=== PATIENT | female | born 1930 | race Caucasian/White ===

== ENCOUNTER 2016-12-07 21:57 | Inpatient (IN) | payer OTHER ==
[2016-12-07 22:29] LABS: % IMMATURE GRANULYOCYTES 0.5 % (0.0-1.1); ABSOLUTE IMMATURE GRANULOCYTES 0.05 10^3/uL (0.00-0.10); ADD DIFF? NO; ADD MORPH? NO; ADD SCAN? NO; ATYPICAL LYMPHOCYTE FLAG 0 (0-99); FRAGMENT RBC FLAG 0 (0-99); HEMATOCRIT 46.7 % (38.0-47.0); HEMOGLOBIN 16.1 g/dL (12.6-16.3); LEFT SHIFT FLG 70 (0-99); LIPEMIA HEMOLYSIS FLAG 90 (0-99); MEAN CELL HEMOGLOBIN 33.1 pg (27.9-34.1); MEAN CELL HEMOGLOBIN CONCENTR. 34.5 g/dL (32.4-36.7); MEAN CELL VOLUME 95.9 fL (81.5-99.8); MEAN PLATELET VOLUME 10.5 fL (8.7-11.7); PLATELET CLUMPS FLAG 30 (0-99); PLATELET COUNT 159 10^3/uL (150-400); RED BLOOD CELL COUNT 4.87 10^6/uL (4.18-5.33); RED CELL DISTRIBUTION WIDTH 13.8 % (11.5-15.2)
--- NOTE | 2016-12-07 22:45 | EDPHY ---
H & P Stated Complaint: HEADACHE SLURRED SPEECH . HX OF FOOT INFECTION Time Seen by Provider: 12/07/16 22:06 HPI/ROS: HPI The patient presents with headache which began at about 9:00 a.m. this morning it has been getting progressively worse over the course of the day, it is left- sided, sharp in nature and intermittent. It is not improved with Tylenol which she took at about 5:00 p.m. today. She has lack of appetite and did not eat much dinner. Her thought that this morning when they were doing their finances she seemed a bit confused though just slightly. She then asked him for help getting ready for bed tonight because she was feeling so weak. This is when he called 911. In the ambulance, the patient was given fentanyl 100 mcg , she is now feeling a bit woozy and her headache is somewhat improved. 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 She has a worsening blister of base of the toe which is associated with some redness of her left mckeon. She denies any falls or trauma. She has not had a headache like this before. REVIEW OF SYSTEMS Constitutional: No fever, no chills. Eyes: No discharge. ENT: No sore throat. Cardiovascular: No chest pain, no palpitations. Respiratory: No cough, no shortness of breath. Gastrointestinal: No abdominal pain, no vomiting. Genitourinary: No hematuria. Musculoskeletal: No back pain. Skin: No rashes. Neurological: See HPI PMHx: CAD status post bypass, polio, osteoarthritis Soc Hx: Lives at home with her PHYSICAL General Appearance: Alert, no distress Eyes: Pupils equal and round no pallor or injection ENT, Mouth: Mucous membranes moist Respiratory: There are no retractions, lungs are clear to auscultation Cardiovascular: Regular rate and rhythm Gastrointestinal: Abdomen is soft and non-tender, no masses, bowel sounds normal Neurological: A&O x3, cranial nerves 2-12 intact, normal finger to nose testing , right upper extremity is weak 4+/5 Skin: Warm and dry, no rashes Musculoskeletal: Neck is supple non tender Extremities: Left 3rd toe with ulceration which is whitish in color, left anterior in her leg with slight erythema and warmth Psychiatric: Patient is oriented X 3, there is no agitation Source: Patient, EMS Exam Limitations: No limitations - Personal History Current Tetanus/Diphtheria Vaccine: Yes Current Tetanus Diphtheria and Acellular Pertussis (TDAP): Yes - Medical/Surgical History Hx Asthma: No Hx Chronic Respiratory Disease: No Hx Diabetes: No Hx Cardiac Disease: Yes Hx Renal Disease: No Hx Cirrhosis: No Hx Alcoholism: No Hx HIV/AIDS: No Hx Splenectomy or Spleen Trauma: No Other PMH: med hx -quad bypass-2000,cholesterol, osteoarthritis,gout,polio, glaucoma,chronic back pain. surg-bypass,cataracts,ortho - Social History Smoking Status: Never smoked Constitutional: Initial Vital Signs Temperature (C) 37.4 C 12/07/16 22:00 Heart Rate 73 12/07/16 22:00 Respiratory Rate 18 12/07/16 22:00 Blood Pressure 137/78 H 12/07/16 22:00 O2 Sat (%) 91 L 12/07/16 22:00 O2 Delivery Mode Room Air O2 (L/minute) 2 Allergies/Adverse Reactions: No Known Allergies Allergy (Verified 12/07/16 22:09) Home Medications: Medication Instructions Recorded ALLOPURINOL [Allopurinol 300 mg] 300 mg PO DAILY 01/25/11 Aspirin [Aspirin 81mg] 81 mg PO DAILY 01/25/11 CELECOXIB [Celebrex] 200 mg PO DAILY 01/25/11 SIMVASTATIN [Zocor] 40 mg PO DAILY 01/25/11 Calcium Citrate W/Vit D [Citracal 06/29/14 + D] Combigan (*) 12/07/16 Latanoprost 12/07/16 Medical Decision Making - Diagnostics EKG Interpretation: EKG: Complete interpretation has been separately recorded in the [facility] archive. Summary impression: Left bundle branch block Imaging Results: Imaging Impressions Head CT 12/07/16 22:20 Impression: Senescent features, with no acute abnormality identified on this unenhanced CT evaluation, or substantial change from 06/29/2014. If there is further clinical concern regarding the patient's symptoms, MR imaging is suggested, if not otherwise contraindicated. Findings were discussed with Emperatriz Mcadams MD at 23:15, on 12/07/2016. Chest x-ray two views demonstrates mild cardiomegaly, no infiltrate, interpreted by me, radiology interpretation is pending. Imaging: Discussed imaging studies w/ art studio teacher Radiologist Differential Diagnosis: This is an 86-year-old female with known CAD, osteoarthritis, history of polio who presents brought in by ambulance for headache which began this morning which is getting progressively worse over the course of the day. She also had an episode of confusion this morning and global weakness while trying to get into bed tonight. On exam, she has normal vital signs the was tired appearing. Her neurologic exam is nonfocal. She does have some weakness of her extremities which is likely related to her underlying polio and is unchanged today. She does have some redness of her left leg which could represent underlying cellulitis Differential diagnosis includes CVA, intracranial hemorrhage, subdural hematoma , systemic illness such as infection, electrolyte disturbance. In the emergency room the patient was given a 1 L fluid bolus for volume depletion. Basic labs were checked which demonstrated an elevated BUN and a UA consistent with urinary tract infection. Chest x-ray was unremarkable. CT scan of head was unremarkable. I feel the patient likely has a UTI as the cause of her symptomatology. She was given a dose of ceftriaxone here. Given her weakness, I do not feel she is suitable for discharge. I discussed the case with the hospitalist senior consumer insights consultant Dr. Hendrix and we plan to admit the patient for observation. The patient and her family are in agreement with this plan and have been updated. I have answered their questions. - Data Points Laboratory Results: Laboratory Results 12/07/16 22:00 12/07/16 22:00 12/07/16 12/07/16 22:00 22:00 WBC 9.64 10^3/uL H 10^3/uL (3.80-9.50) RBC 4.87 10^6/uL 10^6/uL (4.18-5.33) Hgb 16.1 g/dL g/dL (12.6-16.3) Hct 46.7 % % (38.0-47.0) MCV 95.9 fL fL (81.5-99.8) MCH 33.1 pg pg (27.9-34.1) MCHC 34.5 g/dL g/dL (32.4-36.7) RDW 13.8 % % (11.5-15.2) Plt Count 159 10^3/uL 10^3/uL (150-400) MPV 10.5 fL fL (8.7-11.7) Neut % (Auto) 85.0 % H % (39.3-74.2) Lymph % (Auto) 8.7 % L % (15.0-45.0) [place] % (Auto) 5.5 % % (4.5-13.0) Eos % (Auto) 0.1 % L % (0.6-7.6) Baso % (Auto) 0.2 % L % (0.3-1.7) Nucleat RBC Rel Count 0.0 % % (0.0-0.2) Absolute Neuts (auto) 8.19 10^3/uL H 10^3/uL (1.70-6.50) Absolute Lymphs (auto) 0.84 10^3/uL L 10^3/uL (1.00-3.00) Absolute Monos (auto) 0.53 10^3/uL 10^3/uL (0.30-0.80) Absolute Eos (auto) 0.01 10^3/uL L 10^3/uL (0.03-0.40) Absolute Basos (auto) 0.02 10^3/uL 10^3/uL (0.02-0.10) Absolute Nucleated RBC 0.00 10^3/uL 10^3/uL (0-0.01) Immature Gran % 0.5 % % (0.0-1.1) Immature Gran # 0.05 10^3/uL 10^3/uL (0.00-0.10) Sodium 136 mEq/L mEq/L (134-144) Potassium 4.3 mEq/L mEq/L (3.5-5.2) Chloride 100 mEq/L mEq/L (97-110) Carbon Dioxide 24 mEq/l mEq/l (22-31) Anion Gap 12 mEq/L mEq/L (8-16) BUN 27 mg/dL H mg/dL (7-23) Creatinine 0.7 mg/dL mg/dL (0.6-1.0) Estimated GFR > 60 Glucose 112 mg/dL H mg/dL (70-100) Calcium 9.7 mg/dL mg/dL (8.5-10.4) Total Bilirubin 1.0 mg/dL mg/dL (0.1-1.4) AST 30 IU/L IU/L (14-46) ALT 19 IU/L IU/L (9-52) Alkaline Phosphatase 89 IU/L IU/L (38-126) Troponin I 0.026 ng/mL ng/mL (0-0.034) Total Protein 7.4 g/dL g/dL (6.3-8.2) Albumin 4.5 g/dL g/dL (3.5-5.0) Medications Given: Discontinued Medications Acetaminophen (Tylenol) 1,000 mg PO EDNOW ONE Stop: 12/08/16 00:14 Last Admin: 12/08/16 00:28 Dose: 1,000 mg Ceftriaxone Sodium/Dextrose (Rocephin 1 Gm (Premix)) 50 mls @ 100 mls/hr IV EDNOW ONE PRN Reason: Protocol Stop: 12/08/16 00:16 Last Admin: 12/07/16 23:50 Dose: 50 mls Sodium Chloride (Ns) 1,000 mls @ 0 mls/hr IV ONCE ONE PRN Reason: Wide Open Stop: 12/07/16 23:48 Last Admin: 12/07/16 23:50 Dose: 1,000 mls Departure - Departure Disposition: [facility] Inpatient Acute Clinical Impression: Weakness UTI (urinary tract infection) Qualifiers: Urinary tract infection type: site unspecified Hematuria presence: without hematuria Qualified Code(s): N39.0 - Urinary tract infection, site not specified Headache Qualifiers: Headache type: unspecified Headache chronicity pattern: acute headache Intractability: not intractable Qualified Code(s): R51 - Headache Condition: Fair
[2016-12-07 23:13] LABS: ALANINE AMINOTRANSFERASE 19 IU/L (9-52); ALBUMIN 4.5 g/dL (3.5-5.0); ALKALINE PHOSPHATASE 89 IU/L (38-126); ANION GAP 12 mEq/L (8-16); ASPARTATE AMINOTRANSFERASE 30 IU/L (14-46); CALCIUM 9.7 mg/dL (8.5-10.4); CARBON DIOXIDE 24 mEq/l (22-31); CHLORIDE 100 mEq/L (97-110); CREATININE 0.7 mg/dL (0.6-1.0); GLOMERULAR FILTRATION RATE > 60; GLUCOSE 112 mg/dL (70-100); POTASSIUM 4.3 mEq/L (3.5-5.2); SODIUM 136 mEq/L (134-144); TOTAL PROTEIN 7.4 g/dL (6.3-8.2)
[2016-12-07 23:24] LABS: TROPONIN I 0.026 ng/mL (0-0.034)
--- NOTE | 2016-12-07 23:31 | CPEKG ---
Heart Rate: 80 RR Interval: 750 P-R Interval: 200 QRSD Interval: 134 QT Interval: 416 QTC Interval: 480 P [place]: 34 QRS [place]: 50 T Wave [place]: -90 EKG Severity - ABNORMAL ECG - EKG Impression: SINUS RHYTHM EKG Impression: IVCD, CONSIDER ATYPICAL LBBB Electronically Signed By: Emperatriz Mcadams 08-Dec-2016 07:50:28
[2016-12-07] MEDS ORDERED: NS 1,000 ML IV ONE (23:47)
[2016-12-08] MEDS ORDERED: ACETAMINOPHEN 500 MG TAB PO ONE (00:13)
[2016-12-08] MEDS ORDERED: ACETAMINOPHEN 500 MG TAB ONE (00:14)
[2016-12-08 00:38] LABS: COLOR YELLOW; LEUKOCYTE ESTERASE,URINE 1+ (NEGATIVE); NITRITE,URINE POSITIVE (NEGATIVE)
[2016-12-08] MEDS ORDERED: oxyCODONE IR 5 MG TAB PO PRN (00:40)
[2016-12-08] MEDS ORDERED: ONDANSETRON 4 MG/2 ML VIAL IVP PRN (00:40)
[2016-12-08] MEDS ORDERED: ONDANSETRON DISINTEGRATING 4 MG TAB PO PRN (00:40)
[2016-12-08 00:42] LABS: BACTERIA 3+ /hpf (NONE SEEN); MUCUS TRACE /lpf (NONE-1+); RBC,URINE 25-50 /hpf (0-3)
[2016-12-08] MEDS: NS 1,000 ML IV SCH ×2 (01:34→15:53)
--- NOTE | 2016-12-08 01:54 | PDGENHP ---
History and Physical - Chief Complaint headache - History of Present Illness Patient is an 86 year old female with CAD, HLD, gout, OA, childhood polio who presents to the ED with complaint of headache and generalized weakness. Patient began complaining of a L-sided posterior headache this morning at around 9 am, not associated with nausea, photophobia, phonophobia, neck stiffness. She doesn' t usually get headaches, so she felt this was unusual. As the day progressed, the headache progressed, she felt a generalized fatigue, myalgias and lack of appetite. By the evening, she also had some subjective fever and chills, for which her gave her tylenol. She also began to appear confused, so her called his daughters, who recommended they come to the ED for further evaluation. No recent travel, obvious sick contacts, denies any new cough, chest pain, abdominal pain, nausea, vomiting, diarrhea. On arrival to the ED, patient was initially afebrile, then spiked fever to 38.3C , although hemodynamically stable, normal heart rate. Labs revealed mild leukocytosis, normal BMP. CT head was then obtained, did not show any acute abnormalities. EKG showed LBBB (no old to compare). UA was then obtained and was grossly positive. Patient was then cultured, started on antibiotics and admitted to the hospitalist service for further management. History Information - Allergies/Home Medication List Allergies/Adverse Reactions: No Known Allergies Allergy (Verified 12/07/16 22:09) Home Medications: ALLOPURINOL [Allopurinol 300 mg] 300 mg PO DAILY 01/25/11 [Last Taken Unknown] Aspirin [Aspirin 81mg] 81 mg PO DAILY 01/25/11 [Last Taken Unknown] CELECOXIB [Celebrex] 200 mg PO DAILY 01/25/11 [Last Taken Unknown] SIMVASTATIN [Zocor] 40 mg PO DAILY 01/25/11 [Last Taken Unknown] Calcium Citrate W/Vit D [Citracal + D] 06/29/14 [Last Taken Unknown] Combigan (*) 12/07/16 [Last Taken Unknown] Latanoprost 12/07/16 [Last Taken Unknown] I have personally reviewed and updated: family history, medical history, social history, surgical history - Past Medical History Additional medical history: CAD s/p CABG. osteoarthritis. gout. hyperlipidemia. glaucoma. history of childhood polio - Surgical History Additional surgical history: CABG. multiple orthopedic surgeries of her lower extremities in childhood. cataract repair - Family History Positive for: non-pertinent - Social History Smoking Status: Former smoker (quit > 40 years ago) Alcohol Use: None Drug Use: None Additional social history: Patient lives with , is independent in most all ADLs. Two daughters live nearby Review of Systems ROS: 10pt was reviewed & negative except for what was stated in HPI & below Physical Exam Temp Pulse Resp BP Pulse Ox 37.3 C 76 18 124/57 H 95 12/08/16 01:26 12/08/16 01:26 12/08/16 01:26 12/08/16 01:26 12/08/16 01:26 Constitutional: no apparent distress, appears nourished, not in pain Eyes: PERRL, anicteric sclera, EOMI Ears, Nose, Mouth, Throat: moist mucous membranes, hearing normal, ears appear normal, no oral mucosal ulcers Cardiovascular: regular rate and rhythym, no murmur, rub, or gallop, pulses symmetric bilaterally, No JVD, No edema Peripheral Pulses: 2+: dorsalis-pedis (R), dorsalis-pedis (L) Respiratory: no respiratory distress, no rales or rhonchi, clear to auscultation Gastrointestinal: normoactive bowel sounds, soft, non-tender abdomen, no palpable masses, No guarding, No rebound, No distension Genitourinary: no bladder fullness, no bladder tenderness Skin: warm, normal color, erythema (faint erythema and warmth of LLE extending from foot anteriorly up to mid-mckeon; no posterior extension), No mottled Musculoskeletal: full muscle strength, no muscle tenderness, normal joint ROM, no joint effusions, other (polio deformities of bilateral feet) Neurologic: AAOx3, sensation intact bilaterally, CN II-XII Intact, other ( lethargic, but answers questions/follows commands appropriately), No weakness, No numbness Psychiatric: interacting appropriately, not anxious, not encephalopathic, thought process linear Lab Data & Imaging Review 12/07/16 22:00 12/07/16 22:00 WBC 9.64 10^3/uL (3.80-9.50) H 12/07/16 22:00 RBC 4.87 10^6/uL (4.18-5.33) 12/07/16 22:00 Hgb 16.1 g/dL (12.6-16.3) 12/07/16 22:00 Hct 46.7 % (38.0-47.0) 12/07/16 22:00 MCV 95.9 fL (81.5-99.8) 12/07/16 22:00 MCH 33.1 pg (27.9-34.1) 12/07/16 22:00 MCHC 34.5 g/dL (32.4-36.7) 12/07/16 22:00 RDW 13.8 % (11.5-15.2) 12/07/16 22:00 Plt Count 159 10^3/uL (150-400) 12/07/16 22:00 MPV 10.5 fL (8.7-11.7) 12/07/16 22:00 Neut % (Auto) 85.0 % (39.3-74.2) H 12/07/16 22:00 Lymph % (Auto) 8.7 % (15.0-45.0) L 12/07/16 22:00 Person % (Auto) 5.5 % (4.5-13.0) 12/07/16 22:00 Eos % (Auto) 0.1 % (0.6-7.6) L 12/07/16 22:00 Baso % (Auto) 0.2 % (0.3-1.7) L 12/07/16 22:00 Nucleat RBC Rel Count 0.0 % (0.0-0.2) 12/07/16 22:00 Absolute Neuts (auto) 8.19 10^3/uL (1.70-6.50) H 12/07/16 22:00 Absolute Lymphs (auto) 0.84 10^3/uL (1.00-3.00) L 12/07/16 22:00 Absolute Monos (auto) 0.53 10^3/uL (0.30-0.80) 12/07/16 22:00 Absolute Eos (auto) 0.01 10^3/uL (0.03-0.40) L 12/07/16 22:00 Absolute Basos (auto) 0.02 10^3/uL (0.02-0.10) 12/07/16 22:00 Absolute Nucleated RBC 0.00 10^3/uL (0-0.01) 12/07/16 22:00 Immature Gran % 0.5 % (0.0-1.1) 12/07/16 22:00 Immature Gran # 0.05 10^3/uL (0.00-0.10) 12/07/16 22:00 Sodium 136 mEq/L (134-144) 12/07/16 22:00 Potassium 4.3 mEq/L (3.5-5.2) 12/07/16 22:00 Chloride 100 mEq/L (97-110) 12/07/16 22:00 Carbon Dioxide 24 mEq/l (22-31) 12/07/16 22:00 Anion Gap 12 mEq/L (8-16) 12/07/16 22:00 BUN 27 mg/dL (7-23) H 12/07/16 22:00 Creatinine 0.7 mg/dL (0.6-1.0) 12/07/16 22:00 Estimated GFR > 60 12/07/16 22:00 Glucose 112 mg/dL (70-100) H 12/07/16 22:00 Calcium 9.7 mg/dL (8.5-10.4) 12/07/16 22:00 Total Bilirubin 1.0 mg/dL (0.1-1.4) 12/07/16 22:00 AST 30 IU/L (14-46) 12/07/16 22:00 ALT 19 IU/L (9-52) 12/07/16 22:00 Alkaline Phosphatase 89 IU/L (38-126) 12/07/16 22:00 Troponin I 0.026 ng/mL (0-0.034) 12/07/16 22:00 Total Protein 7.4 g/dL (6.3-8.2) 12/07/16 22:00 Albumin 4.5 g/dL (3.5-5.0) 12/07/16 22:00 Urine Color YELLOW 12/08/16 00:28 Urine Appearance HAZY 12/08/16 00:28 Urine pH 6.0 (5.0-7.5) 12/08/16 00:28 Ur Specific [place] 1.018 (1.002-1.030) 12/08/16 00:28 Urine Protein NEGATIVE (NEGATIVE) 12/08/16 00:28 Urine Ketones TRACE (NEGATIVE) H 12/08/16 00:28 Urine Blood 2+ (NEGATIVE) H 12/08/16 00:28 Urine Nitrate POSITIVE (NEGATIVE) H 12/08/16 00:28 Urine Bilirubin NEGATIVE (NEGATIVE) 12/08/16 00:28 Urine Urobilinogen NEGATIVE EU (0.2-1.0) 12/08/16 00:28 Ur Leukocyte Esterase 1+ (NEGATIVE) H 12/08/16 00:28 Urine RBC 25-50 /hpf (0-3) H 12/08/16 00:28 Urine WBC 3-5 /hpf (0-3) H 12/08/16 00:28 Ur Epithelial Cells TRACE /lpf (NONE-1+) 12/08/16 00: Urine Bacteria 3+ /hpf (NONE SEEN) H 12/08/16 00:28 Urine Mucus TRACE /lpf (NONE-1+) 12/08/16 00:28 Urine Glucose NEGATIVE (NEGATIVE) 12/08/16 00:28 Influenza Typ A,B (DFA) NEGATIVE FOR FLU (NEGATIVE) 12/08/16 00:12 Visualized and Interpreted Chest x-ray results: Yes Chest X-Ray results: no infiltrate, normal Visualized and Interpreted imaging results: Yes Interpretation: CT Head: elderly brain, no acute intracranial abnormalities Visualized and Interpreted EKG results: Yes EKG Interpretation: Positive for: left bundle branch block (no old to compare) Assessment & Plan Assessment: Patient is an 86 year old female with CAD, osteoarthritis, hyperlipidemia, history of childhood polio who presents to the ED with generalized fatigue, myalgias, fever and headache. ED evaluation reveals acute UTI, without evidence of sepsis. Plan: # UTI Patient's presenting symptoms are likely related to acute/early infection. ED work up reveals fever, slight leukocytosis and positive UA (UA obtained after ceftriaxone was given). CXR and flu swab are negative. Blood and urine cultures were sent and patient was initiated on antibiotics. Ceftriaxone will also cover mild LLE cellulitis also present on admission. - f/u cultures - ceftriaxone 1 g daily - IVF hydration overnight with normal saline # headache Suspect due to above, headache improved with acetaminophen. CT head without any acute pathology, patient has no focal deficits, lethargic but mentating well. Will cont to monitor and treat pain prn. # LBBB Patient denies any associated chest pain with presentation, however, has known CAD (with cabg about 15 years ago) and EKG shows LBBB, with no old in meditech to compare. Will monitor troponins, resume home meds and repeat AM EKG. Will also try to obtain outpatient/previous EKG. # Gout, osteoarthritis Complaining of L 3rd toe pain, does not appear to be an acute gout flare, more likely related to her chronic contracture/OA. Will continue her home pain regimen and allopurinol. # HLD Cont home statin. # dispo: admit to observation for treatment of early UTI # gen: cardiac diet DVT ppx: if remains for > 2 MN, initiate lovenox Full code
[2016-12-08 05:30] LABS: ANION GAP 5 mEq/L (8-16); CALCIUM 8.2 mg/dL (8.5-10.4); CARBON DIOXIDE 23 mEq/l (22-31); CHLORIDE 108 mEq/L (97-110); CREATININE 0.6 mg/dL (0.6-1.0); GLOMERULAR FILTRATION RATE > 60; GLUCOSE 109 mg/dL (70-100); MAGNESIUM 1.7 mg/dL (1.6-2.3); POTASSIUM 3.6 mEq/L (3.5-5.2); SODIUM 136 mEq/L (134-144)
[2016-12-08 05:33] LABS: % IMMATURE GRANULYOCYTES 0.4 % (0.0-1.1); ABSOLUTE IMMATURE GRANULOCYTES 0.03 10^3/uL (0.00-0.10); ADD DIFF? NO; ADD MORPH? NO; ADD SCAN? NO; ATYPICAL LYMPHOCYTE FLAG 0 (0-99); FRAGMENT RBC FLAG 0 (0-99); HEMATOCRIT 36.7 % (38.0-47.0); HEMOGLOBIN 12.7 g/dL (12.6-16.3); LEFT SHIFT FLG 70 (0-99); LIPEMIA HEMOLYSIS FLAG 90 (0-99); MEAN CELL HEMOGLOBIN 33.3 pg (27.9-34.1); MEAN CELL HEMOGLOBIN CONCENTR. 34.6 g/dL (32.4-36.7); MEAN CELL VOLUME 96.3 fL (81.5-99.8); MEAN PLATELET VOLUME 10.5 fL (8.7-11.7); PLATELET CLUMPS FLAG 0 (0-99); PLATELET COUNT 117 10^3/uL (150-400); RED BLOOD CELL COUNT 3.81 10^6/uL (4.18-5.33)
[2016-12-08 05:41] LABS: TROPONIN I 0.035 ng/mL (0-0.034)
[2016-12-08] MEDS: ENOXAPARIN 40 MG/0.4 ML SYR SC SCH (08:31)
--- NOTE | 2016-12-08 09:50 | CPEKG ---
Heart Rate: 73 RR Interval: 822 P-R Interval: 184 QRSD Interval: 86 QT Interval: 384 QTC Interval: 424 P [place]: 12 QRS [place]: -17 T Wave [place]: 79 EKG Severity - ABNORMAL ECG - EKG Impression: SINUS RHYTHM EKG Impression: PROBABLE LVH WITH SECONDARY REPOL ABNRM Electronically Signed By: Emperatriz Mcadams 09-Dec-2016 07:03:29
[2016-12-08] MEDS: ACETAMINOPHEN 325 MG TAB PO PRN (09:52)
--- NOTE | 2016-12-08 10:24 | HOSPPROG ---
Hospitalist Progress Note Assessment/Plan: 86 yo F w cad here w fever, likely LLL pneumonia fever: reasonably attributed to LL pneumonia blood cx drawn LLL pneumonia: add doxycycline not hypoxic ? UTI: no sx will be covered by ceftriaxone proph: add LMWH cad: weakly + troponin repeat on asa/statin she notes increasing fatigue lately- probably reasona ble to get outpt stress dispo: inpt Subjective: case d/w dr ulloa. cxr w possible LLL infiltrate (interp by me) Objective: Vital Signs Temp Pulse Resp BP Pulse Ox 36.9 C 71 14 128/62 H 94 12/08/16 07:52 12/08/16 07:52 12/08/16 07:52 12/08/16 07:52 12/08/16 07:52 Laboratory Results 12/08/16 05:01 12/08/16 05:01 12/07/16 12/08/16 12/09/16 05:59 05:59 05:59 Intake Total 1000 386 Output Total 200 Balance 800 386 - Physical Exam Constitutional: no apparent distress, appears nourished Eyes: PERRL, anicteric sclera Ears, Nose, Mouth, Throat: moist mucous membranes, hearing normal Cardiovascular: regular rate and rhythym, no murmur, rub, or gallop Respiratory: no respiratory distress, other (crackles LLL) Gastrointestinal: normoactive bowel sounds, soft, non-tender abdomen, no palpable masses Genitourinary: No kim in urethra Skin: warm, normal color Musculoskeletal: full muscle strength, no muscle tenderness Neurologic: AAOx3, sensation intact bilaterally Psychiatric: interacting appropriately ICD10 Worksheet Patient Problems: Problems Problem Status Onset Headache Acute UTI (urinary tract infection) Acute Weakness Acute
[2016-12-08] MEDS: DOXYCYCLINE INJ 100 MG in NS 250 ML IV SCH ×2 (12:14→20:41)
[2016-12-08] MEDS ORDERED: BRIMONIDINE/TIMOLOL 5 ML OPHT.BTL EACHEYE SCH (20:00)
[2016-12-08] MEDS: ALLOPURINOL 300 MG TAB PO SCH (20:41)
[2016-12-08] MEDS: ATORVASTATIN CALCIUM 20 MG TAB PO SCH (20:41)
[2016-12-08] MEDS: ASPIRIN 81 MG CHEWABLE TAB PO SCH (20:41)
[2016-12-08] MEDS: BRIMONIDINE/TIMOLOL 5 ML OPHT.BTL EACHEYE SCH (20:42)
[2016-12-08] MEDS: LATANOPROST 0.005% 2.5 ML OPHT DROPS EACHEYE SCH (20:42)
[2016-12-08] MEDS ORDERED: NON-FORMULARY NEW DRUG (Simvastatin [Zocor] 40 MG) PO SCH (21:00)
[2016-12-08] MEDS ORDERED: LATANOPROST 0.005% 2.5 ML OPHT DROPS EACHEYE SCH (22:00)
[2016-12-09] MEDS: BRIMONIDINE/TIMOLOL 5 ML OPHT.BTL EACHEYE SCH ×2 (05:03→20:08)
[2016-12-09] MEDS: ENOXAPARIN 40 MG/0.4 ML SYR SC SCH (08:38)
[2016-12-09] MEDS ORDERED: Herbals/Supplements -Info Only PO SCH (09:00)
[2016-12-09] MEDS: DOXYCYCLINE INJ 100 MG in NS 250 ML IV SCH ×2 (09:33→22:22)
--- NOTE | 2016-12-09 09:41 | HOSPPROG ---
Hospitalist Progress Note Assessment/Plan: 86 yo F w cad here w fever, likely LLL pneumonia fever: reasonably attributed to LL pneumonia blood cx drawn afebril X 24 hours LLL pneumonia: add doxycycline not hypoxic ? UTI: no sx will be covered by ceftriaxone proph: add LMWH cad: weakly + troponin repeat on asa/statin she notes increasing fatigue lately- probably reasona ble to get outpt stress ok to dc tele dispo: inpt Subjective: tele: no events (interp by me). feels well Objective: Vital Signs Temp Pulse Resp BP Pulse Ox 36.8 C 61 18 142/73 H 94 12/09/16 07:19 12/09/16 07:19 12/09/16 07:19 12/09/16 07:19 12/09/16 07:19 Laboratory Results 12/08/16 05:01 12/08/16 05:01 12/08/16 12/09/16 12/10/16 05:59 05:59 05:59 Intake Total 1000 1826 2114 Output Total 200 700 200 Balance 800 1126 1914 - Physical Exam Constitutional: no apparent distress, appears nourished Eyes: PERRL, anicteric sclera Ears, Nose, Mouth, Throat: moist mucous membranes, hearing normal Cardiovascular: regular rate and rhythym, no murmur, rub, or gallop, No tachycardia Respiratory: no respiratory distress, other (crackles L base) Gastrointestinal: normoactive bowel sounds, soft, non-tender abdomen Genitourinary: No kim in urethra Skin: warm, normal color Musculoskeletal: full muscle strength, no muscle tenderness Neurologic: AAOx3, sensation intact bilaterally Psychiatric: interacting appropriately, not anxious Lymph, Heme, Immunologic: no cervical LAD ICD10 Worksheet Patient Problems: Problems Problem Status Onset Headache Acute UTI (urinary tract infection) Acute Weakness Acute
[2016-12-09] MEDS: ATORVASTATIN CALCIUM 20 MG TAB PO SCH (20:08)
[2016-12-09] MEDS: LATANOPROST 0.005% 2.5 ML OPHT DROPS EACHEYE SCH (20:08)
[2016-12-09] MEDS: ALLOPURINOL 300 MG TAB PO SCH (20:08)
[2016-12-09] MEDS: ASPIRIN 81 MG CHEWABLE TAB PO SCH (20:08)
[2016-12-10] MEDS: BRIMONIDINE/TIMOLOL 5 ML OPHT.BTL EACHEYE SCH ×2 (04:22→20:40)
[2016-12-10] MEDS: ENOXAPARIN 40 MG/0.4 ML SYR SC SCH (09:47)
--- NOTE | 2016-12-10 10:26 | HOSPPROG ---
Hospitalist Progress Note Assessment/Plan: 86 yo F w cad here w fever, likely LLL pneumonia fever: reasonably attributed to LL pneumonia blood cx drawn afebril X 24 hours LLL pneumonia: add doxycycline not hypoxic repeat cxr today given worsening exam RLE erythema: unnleikely cellulitis repeat eval later today rn to [place] ? UTI: no sx will be covered by ceftriaxone proph: add LMWH cad: weakly + troponin repeat on asa/statin she notes increasing fatigue lately- probably reasona ble to get outpt stress ok to dc tele dispo: inpt Subjective: feels " worse" today. repeat cxr pending Objective: Vital Signs Temp Pulse Resp BP Pulse Ox 36.8 C 74 16 166/89 H 95 12/10/16 07:45 12/10/16 07:45 12/10/16 07:45 12/10/16 08:18 12/10/16 07:45 Laboratory Results 12/08/16 05:01 12/08/16 05:01 12/09/16 12/10/16 12/11/16 05:59 05:59 05:59 Intake Total 1826 4315 Output Total 700 3400 350 Balance 1126 915 -350 - Physical Exam Constitutional: no apparent distress, appears nourished Eyes: PERRL, anicteric sclera Ears, Nose, Mouth, Throat: moist mucous membranes, hearing normal Cardiovascular: regular rate and rhythym, no murmur, rub, or gallop Respiratory: other (increased crackles at L base, good air movement, no wheeze) Gastrointestinal: normoactive bowel sounds, soft, non-tender abdomen Genitourinary: no bladder fullness, No kim in urethra Skin: warm, normal color Musculoskeletal: full muscle strength, other (mild erythema on L medial calf. no lymphangitic streaking) Neurologic: AAOx3 Psychiatric: interacting appropriately, not anxious ICD10 Worksheet Patient Problems: Problems Problem Status Onset Chronic Disease Mgmt/Transitional Care Acute Headache Acute UTI (urinary tract infection) Acute Weakness Acute
[2016-12-10] MEDS: DOXYCYCLINE INJ 100 MG in NS 250 ML IV SCH ×2 (10:44→20:41)
[2016-12-10] MEDS: ACETAMINOPHEN 325 MG TAB PO PRN (11:26)
[2016-12-10] MEDS: ALLOPURINOL 300 MG TAB PO SCH (20:39)
[2016-12-10] MEDS: ATORVASTATIN CALCIUM 20 MG TAB PO SCH (20:40)
[2016-12-10] MEDS: ASPIRIN 81 MG CHEWABLE TAB PO SCH (20:40)
[2016-12-10] MEDS: LATANOPROST 0.005% 2.5 ML OPHT DROPS EACHEYE SCH (20:41)
[2016-12-11] MEDS: BRIMONIDINE/TIMOLOL 5 ML OPHT.BTL EACHEYE SCH (04:23)
[2016-12-11 07:49] VITALS: BP 153/72; RESP 18; TEMP 97.8; O2SAT 94
[2016-12-11] MEDS: ENOXAPARIN 40 MG/0.4 ML SYR SC SCH (08:52)
[2016-12-11] MEDS: DOXYCYCLINE INJ 100 MG in NS 250 ML IV SCH (08:52)
--- NOTE | 2016-12-11 10:04 | PDIAF ---
- Diagnosis Diagnosis: community acquired pneumonia Code Status: Full Code - Medication Management Discharge Medications: Medications to Continue on Transfer Allopurinol [Allopurinol 300 MG (RX)] 300 mg PO HS 12/08/16 [Last Taken 12/06/16 ] Aspirin [Aspirin 81mg (*)] 81 mg PO HS 12/08/16 [Last Taken 12/06/16] Brimonidine/Timolol [Combigan (*)] 1 drops EACHEYE BID@,12/08/16 [Last Taken 12/07/16] Herbals/Supplements -Info Only 1 ea PO DAILY 12/08/16 [Last Taken Unknown] Latanoprost 0.005% [Xalatan 0.005% (*)] 1 drops EACHEYE DAILY@2200 12/08/16 [ Last Taken 12/06/16] Simvastatin [Zocor] 40 mg PO HS 12/08/16 [Last Taken 12/06/16] celeCOXIB [Celebrex (*)] 200 mg PO DAILY 12/08/16 [Last Taken 12/07/16] Amoxicillin 500 mg PO TID 3 Days 12/11/16 [Last Taken Unknown] Doxycycline Hyclate 100 mg PO BID #6 tablet 12/11/16 [Last Taken Unknown] Discharge Medications: Refer to the Discharge Home Medication list for PRN reason. - Orders Services needed: Home Care, Registered Nurse, Physical Therapy, Occupational Therapy Home Care Face to Face: I certify that this patient was under my care and that I had the required [id number] encounter meeting the encounter requirements on the discharge day. My findings support the fact that the patient is homebound as defined in CMS Chapter 7 Medicare Benefits Manual 30.1.1, The condition of the patient is such that there exists a normal inability to leave home and consequently, leaving home would require a considerable and taxing effort. Diet Recommendation: no restrictions on diet - Follow Up Care Current Providers and Referrals: Patient,NotPresent [Unknown] - As per Instructions
--- NOTE | 2016-12-11 10:05 | HOSPPROG ---
Hospitalist Progress Note Assessment/Plan: 86 yo F w cad here w fever, likely LLL pneumonia fever: reasonably attributed to LL pneumonia blood cx drawn afebril X 24 hours LLL pneumonia: add doxycycline not hypoxic repeat cxr today given worsening exam RLE erythema: unnleikely cellulitis repeat eval later today rn to [facility] ? UTI: no sx will be covered by ceftriaxone proph: add LMWH cad: weakly + troponin repeat on asa/statin she notes increasing fatigue lately- probably reasona ble to get outpt stress ok to dc tele dispo: home today > 30 minutes Subjective: ready for dc Objective: Vital Signs Temp Pulse Resp BP Pulse Ox 36.6 C 56 L 18 153/72 H 94 12/11/16 07:49 12/11/16 07:49 12/11/16 07:49 12/11/16 07:49 12/11/16 07:49 Microbiology 12/08/16 01:34 Urine Culture - Final Urine,Catheterized Strep Agalactiae Group B Two [place] Types Laboratory Results 12/08/16 05:01 12/08/16 05:01 12/10/16 12/11/16 12/12/16 05:59 05:59 05:59 Intake Total 4315 1060 Output Total 3400 2050 200 Balance 915 -990 -200 ICD10 Worksheet Patient Problems: Problems Problem Status Onset Chronic Disease Mgmt/Transitional Care Acute Headache Acute UTI (urinary tract infection) Acute Weakness Acute
--- NOTE | 2016-12-11 10:36 | GDS ---
[f rep st] DISCHARGE SUMMARY DISCHARGE DIAGNOSES: 1. Likely community-acquired pneumonia. 2. Hiatal hernia. 3. Hypertension. 4. Gout. 5. Coronary artery disease. HOSPITAL COURSE: Please see admission history and physical by Dr. Lulu Hendrix. The patient presented with headache and generalized weakness. There was some concern of a UTI. She has not had any urinary symptoms. She had a chest x-ray showing left-side infiltrate. This is confounded by a large hiatal hernia. She had weakly positive troponins without anginal symptoms and a history of coronary artery disease. Further workup was not obtained. The patient was on room air at the time of discharge. She will receive a 7-day course of antibiotics, ceftriaxone and doxycycline while here. She will be discharged on amoxicillin and doxycycline. She was afebrile for a number of days. She is discharged with home care PT, OT and RN. /[id number]/MODL MTDD
[2016-12-11 12:54] VITALS: PULSE 60
== END 2016-12-11 12:55 | disposition home health service (06) | DRG 195 ==
LOC: EDUNIT# → OBSVTOIN 12-08 00:42 → F3E 12-08 01:08
PROVIDERS: ADMIT Internal Medicine; ATTEND Internal Medicine
DX: J18.9 Pneumonia, unspecified organism (principal); I10 Essential (primary) hypertension; I25.10 Atherosclerotic heart disease of native coronary artery without angina pectoris; M10.9 Gout, unspecified; K44.9 Diaphragmatic hernia without obstruction or gangrene; Z86.12 Personal history of poliomyelitis
CPT/HCPCS: 96374; 97116-GP; 97162-GP; 97165-GO; 97530-GP; 97535-GO; G8978-GP-CL; G8979-GP-CJ; G8980-GP-CI; G8984-GO-CI; G8985-GO-CI; J0696; J1650

== ENCOUNTER → 2017-08-18 | Outpatient (CLI) | payer OTHER | LOC: CIMAGING 09:25 | PROVIDERS: ATTEND Family Medicine | DX: Z12.31 Encounter for screening mammogram for malignant neoplasm of breast (principal) ==